=== PATIENT | female | born 1995 | race Caucasian/White ===

== ENCOUNTER 2023-03-21 16:14 | Inpatient (IN) | payer BC ==
[2023-03-21 19:53] VITALS: BMI 29.0
[2023-03-21] MEDS ORDERED: BENZONATATE 200 MG CAPSULE PO PRN (20:04)
[2023-03-21] MEDS ORDERED: COLLOIDAL OATMEAL 1 BAR EACH TP PRN (20:04)
[2023-03-21] MEDS ORDERED: MAGNESIUM HYDROX 2400MG/30ML ORAL SUSPENSION 30 ML CUP PO PRN (20:04)
[2023-03-21] MEDS ORDERED: MAG HYDROX/AL HYDROX/SIMETH 30 ML UNIT-DOSE CUP PO PRN (20:04)
[2023-03-21] MEDS ORDERED: LOPERAMIDE HCL 2 MG CAPSULE PO PRN (20:04)
[2023-03-21] MEDS ORDERED: POLYETHYLENE GLYCOL (HEALTHYLAX) 3350 17 GM PACKET PO PRN (20:04)
[2023-03-21] MEDS ORDERED: NALOXONE HCL (KLOXXADO) 8 MG SPRAY NS PRN (20:04)
[2023-03-21] MEDS ORDERED: NALOXONE HCL 0.4 MG/ML VIAL IM PRN (20:04)
[2023-03-21] MEDS ORDERED: guaiFENesin 600 MG TABLET.ER (FP) PO PRN (20:04)
[2023-03-21] MEDS ORDERED: ALBUTEROL SO4 HFA INHALER IH PRN (20:09)
[2023-03-21] MEDS: MELATONIN 5 MG TABLETS PO SCH (23:37)
[2023-03-21] MEDS: THIAMINE HCL 100 MG TABLET (FP) PO SCH (23:38)
[2023-03-22] MEDS ORDERED: TUBERCULIN PPD 5 TU/0.1ML VIAL ID ONE (01:20)
[2023-03-22 10:51] LABS: HEMATOCRIT 37.2 % (32.4-45.2); HEMOGLOBIN 12.4 GM/dL (10.7-15.3); MCH 30.1 pg (25.7-33.7); MCHC 33.3 g/dl (32.0-36.0); MEAN CELL VOLUME 90.5 fl (80-96); MEAN PLT VOLUME 8.8 fl (7.5-11.1); PLATELET COUNT 238 10^3/uL (134-434); RBC 4.11 M/mm3 (3.60-5.2); RDW 13.9 % (11.6-15.6); WHITE BLOOD COUNT 7.8 K/mm3 (4.0-10.0)
[2023-03-22] MEDS: PRENATAL VITAMINS W/ FOLIC ACID TABLET (FP) PO SCH (11:16)
[2023-03-22 11:49] LABS: CHLORIDE 114 mmol/L (98-107); SODIUM 146 mmol/L (136-145)
[2023-03-22 11:57] LABS: ANION GAP 5 mmol/L (4-13); BLOOD UREA NITROGEN 10.2 mg/dL (7-18); CALCIUM 8.7 mg/dL (8.5-10.1); CO2 27 mmol/L (21-32); GLUCOSE,RANDOM 89 mg/dL (74-106)
[2023-03-22 11:59] LABS: ALBUMIN 2.7 g/dl (3.4-5.0)
[2023-03-22 12:00] LABS: CREATININE 0.6 mg/dL (0.55-1.3)
[2023-03-22 12:01] LABS: SGOT/AST 12 U/L (15-37); SGPT/ALT 19 U/L (13-61)
[2023-03-22 12:02] LABS: BILIRUBIN,TOTAL 0.2 mg/dL (0.2-1); TOT PROT 6.8 g/dl (6.4-8.2)
[2023-03-22 12:03] LABS: ALK PHOS 54 U/L (45-117)
[2023-03-22 12:33] LABS: SYPHILIS W/ RPR CONF REACTIVE (NONREACTIVE)
[2023-03-22] MEDS: NICOTINE POLACRILEX 4 MG GUM BUC PRN ×2 (13:02→17:33)
[2023-03-22] MEDS: THIAMINE HCL 100 MG TABLET (FP) PO SCH (21:22)
[2023-03-22] MEDS: MELATONIN 5 MG TABLETS PO SCH (21:22)
[2023-03-23] MEDS: PRENATAL VITAMINS W/ FOLIC ACID TABLET (FP) PO SCH (10:10)
[2023-03-23 12:00] LABS: EPI CELLS >36 /uL (0-25.1); HYALINE CASTS 1 /uL (0-3.1); PH,URINE 5.5 (5.0-8.0); URINE APPEARANCE CLOUDY; URINE BACTERIA >9,000 /uL (0-1359); URINE BILIRUBIN NEGATIVE (NEGATIVE); URINE COLOR YELLOW; URINE GLUCOSE (UA) NEGATIVE (NEGATIVE); URINE KETONE NEGATIVE (NEGATIVE); URINE LEUK ESTERASE 2+ (NEGATIVE); URINE NITRITE POSITIVE (NEGATIVE); URINE PROTEIN NEGATIVE (NEGATIVE); URINE RBC 47 /uL (0-23.9); URINE UROBILINOGEN 0.2 mg/dL (0.2-1.0); URINE WBC 1837 /uL (0-25.8)
[2023-03-23] MEDS: NICOTINE POLACRILEX 4 MG GUM BUC PRN (20:28)
[2023-03-23] MEDS: MELATONIN 5 MG TABLETS PO SCH (21:10)
[2023-03-23] MEDS: THIAMINE HCL 100 MG TABLET (FP) PO SCH (21:10)
[2023-03-24] MEDS: NICOTINE POLACRILEX 4 MG GUM BUC PRN ×3 (09:50→21:20)
[2023-03-24] MEDS: PRENATAL VITAMINS W/ FOLIC ACID TABLET (FP) PO SCH (09:50)
[2023-03-24] MEDS ORDERED: PENICILLIN G BENZATHINE 2,400,000 UNIT/4 ML PFS IM ONE (12:02)
[2023-03-24] MEDS: IBUPROFEN 600 MG TABLET (FP) PO PRN ×2 (14:53→22:24)
[2023-03-24] MEDS: MELATONIN 5 MG TABLETS PO SCH (21:20)
[2023-03-24] MEDS: THIAMINE HCL 100 MG TABLET (FP) PO SCH (21:20)
[2023-03-24] MEDS ORDERED: SULFAMETHOXAZOLE/TRIMETHOPRIM 800MG/160MG D.S. TABLET PO SCH (22:00)
[2023-03-25] MEDS: PRENATAL VITAMINS W/ FOLIC ACID TABLET (FP) PO SCH (09:59)
[2023-03-25] MEDS: IBUPROFEN 600 MG TABLET (FP) PO PRN ×2 (09:59→21:24)
[2023-03-25] MEDS: NICOTINE POLACRILEX 4 MG GUM BUC PRN ×3 (10:00→21:27)
[2023-03-25 12:39] LABS: HIV INTERPRETATION NEGATIVE (NEGATIVE)
[2023-03-25] MEDS: THIAMINE HCL 100 MG TABLET (FP) PO SCH (21:24)
[2023-03-25] MEDS: MELATONIN 5 MG TABLETS PO SCH (21:24)
[2023-03-25] MEDS: SULFAMETHOXAZOLE/TRIMETHOPRIM 800MG/160MG D.S. TABLET PO SCH (21:24)
[2023-03-26] MEDS: NICOTINE POLACRILEX 4 MG GUM BUC PRN ×4 (07:58→21:46)
[2023-03-26] MEDS: PRENATAL VITAMINS W/ FOLIC ACID TABLET (FP) PO SCH (10:05)
[2023-03-26] MEDS: SULFAMETHOXAZOLE/TRIMETHOPRIM 800MG/160MG D.S. TABLET PO SCH ×2 (10:05→21:44)
[2023-03-26] MEDS ORDERED: ONDANSETRON *ODT* 4 MG TABLET SL PRN (10:14)
[2023-03-26] MEDS: IBUPROFEN 600 MG TABLET (FP) PO PRN (17:13)
[2023-03-26] MEDS: MELATONIN 5 MG TABLETS PO SCH (21:44)
[2023-03-26] MEDS: THIAMINE HCL 100 MG TABLET (FP) PO SCH (21:45)
[2023-03-27] MEDS: SULFAMETHOXAZOLE/TRIMETHOPRIM 800MG/160MG D.S. TABLET PO SCH ×2 (10:00→21:43)
[2023-03-27] MEDS: PRENATAL VITAMINS W/ FOLIC ACID TABLET (FP) PO SCH (10:00)
[2023-03-27] MEDS: NICOTINE POLACRILEX 4 MG GUM BUC PRN ×5 (10:01→19:18)
[2023-03-27] MEDS: THIAMINE HCL 100 MG TABLET (FP) PO SCH (21:43)
[2023-03-27] MEDS: MELATONIN 5 MG TABLETS PO SCH (21:43)
[2023-03-27] MEDS: ACETAMINOPHEN 325 MG TABLET (FP) PO PRN (21:44)
[2023-03-28] MEDS: PRENATAL VITAMINS W/ FOLIC ACID TABLET (FP) PO SCH (09:59)
[2023-03-28] MEDS: SULFAMETHOXAZOLE/TRIMETHOPRIM 800MG/160MG D.S. TABLET PO SCH ×2 (09:59→21:28)
[2023-03-28] MEDS: NICOTINE POLACRILEX 4 MG GUM BUC PRN ×5 (10:00→21:27)
[2023-03-28] MEDS: ACETAMINOPHEN 325 MG TABLET (FP) PO PRN (11:28)
[2023-03-28] MEDS: THIAMINE HCL 100 MG TABLET (FP) PO SCH (21:28)
[2023-03-28] MEDS: MELATONIN 5 MG TABLETS PO SCH (21:28)
[2023-03-29] MEDS: NICOTINE POLACRILEX 4 MG GUM BUC PRN ×5 (09:48→21:41)
[2023-03-29] MEDS: PRENATAL VITAMINS W/ FOLIC ACID TABLET (FP) PO SCH (09:48)
[2023-03-29] MEDS: THIAMINE HCL 100 MG TABLET (FP) PO SCH (21:38)
[2023-03-29] MEDS: MELATONIN 5 MG TABLETS PO SCH (21:38)
[2023-03-29] MEDS: IBUPROFEN 600 MG TABLET (FP) PO PRN (21:39)
[2023-03-29] MEDS: ACETAMINOPHEN 325 MG TABLET (FP) PO PRN (23:26)
[2023-03-30] MEDS: PRENATAL VITAMINS W/ FOLIC ACID TABLET (FP) PO SCH (09:39)
[2023-03-30] MEDS: NICOTINE POLACRILEX 4 MG GUM BUC PRN ×5 (09:40→22:04)
[2023-03-30] MEDS: IBUPROFEN 600 MG TABLET (FP) PO PRN ×3 (10:57→21:25)
[2023-03-30] MEDS ORDERED: METHYL SALICYLATE/MENTHOL OINT 30 GM TUBE TP PRN (13:45)
[2023-03-30] MEDS: METHYL SALICYLATE/MENTHOL OINT 30 GM TUBE TP PRN ×2 (14:37→21:26)
[2023-03-30] MEDS: METHOCARBAMOL 500 MG TABLET PO PRN ×2 (14:37→21:25)
[2023-03-30] MEDS: THIAMINE HCL 100 MG TABLET (FP) PO SCH (21:23)
[2023-03-30] MEDS: MELATONIN 5 MG TABLETS PO SCH (21:23)
[2023-03-31] MEDS: NICOTINE POLACRILEX 4 MG GUM BUC PRN ×7 (08:05→22:20)
[2023-03-31] MEDS: METHYL SALICYLATE/MENTHOL OINT 30 GM TUBE TP PRN ×2 (09:55→21:32)
[2023-03-31] MEDS: PRENATAL VITAMINS W/ FOLIC ACID TABLET (FP) PO SCH (09:55)
[2023-03-31] MEDS: METHOCARBAMOL 500 MG TABLET PO PRN ×2 (09:56→21:33)
[2023-03-31] MEDS: IBUPROFEN 400 MG TABLET (FP) PO PRN (09:56)
[2023-03-31] MEDS ORDERED: PENICILLIN G BENZATHINE 2,400,000 UNIT/4 ML PFS IM ONE (10:00)
[2023-03-31] MEDS: MELATONIN 5 MG TABLETS PO SCH (21:29)
[2023-03-31] MEDS: IBUPROFEN 600 MG TABLET (FP) PO PRN (21:29)
[2023-03-31] MEDS: THIAMINE HCL 100 MG TABLET (FP) PO SCH (21:34)
[2023-04-01] MEDS: NICOTINE POLACRILEX 4 MG GUM BUC PRN ×5 (06:53→21:18)
[2023-04-01] MEDS: PRENATAL VITAMINS W/ FOLIC ACID TABLET (FP) PO SCH (09:43)
[2023-04-01] MEDS: IBUPROFEN 600 MG TABLET (FP) PO PRN ×3 (09:43→23:00)
[2023-04-01] MEDS: METHOCARBAMOL 500 MG TABLET PO PRN ×2 (09:43→21:16)
[2023-04-01] MEDS: MELATONIN 5 MG TABLETS PO SCH (21:16)
[2023-04-01] MEDS: METHYL SALICYLATE/MENTHOL OINT 30 GM TUBE TP PRN (21:17)
[2023-04-01] MEDS: THIAMINE HCL 100 MG TABLET (FP) PO SCH (21:18)
[2023-04-02] MEDS: hydrOXYzine PAMOATE 25 MG CAPSULE (FP) PO PRN (02:15)
[2023-04-02] MEDS: ALBUTEROL SO4 HFA INHALER IH PRN ×2 (03:03→15:23)
[2023-04-02] MEDS: NICOTINE POLACRILEX 4 MG GUM BUC PRN ×7 (07:51→23:11)
[2023-04-02] MEDS: PRENATAL VITAMINS W/ FOLIC ACID TABLET (FP) PO SCH (09:34)
[2023-04-02] MEDS: METHOCARBAMOL 500 MG TABLET PO PRN ×2 (09:36→21:36)
[2023-04-02] MEDS: IBUPROFEN 600 MG TABLET (FP) PO PRN ×3 (09:36→21:37)
[2023-04-02] MEDS: MELATONIN 5 MG TABLETS PO SCH (21:36)
[2023-04-02] MEDS: THIAMINE HCL 100 MG TABLET (FP) PO SCH (21:36)
[2023-04-03] MEDS: NICOTINE POLACRILEX 4 MG GUM BUC PRN ×5 (06:01→21:42)
[2023-04-03] MEDS: BENZOCAINE/MENTHOL (CHLORASEPTIC ) LOZENGE MM PRN ×3 (06:24→21:27)
[2023-04-03] MEDS: PRENATAL VITAMINS W/ FOLIC ACID TABLET (FP) PO SCH (09:50)
[2023-04-03] MEDS: IBUPROFEN 400 MG TABLET (FP) PO PRN ×2 (09:51→15:41)
[2023-04-03] MEDS: METHOCARBAMOL 500 MG TABLET PO PRN ×2 (15:41→21:24)
[2023-04-03] MEDS: MELATONIN 5 MG TABLETS PO SCH (21:23)
[2023-04-03] MEDS: THIAMINE HCL 100 MG TABLET (FP) PO SCH (21:24)
[2023-04-03] MEDS: IBUPROFEN 600 MG TABLET (FP) PO PRN (21:25)
[2023-04-04] MEDS: BENZOCAINE/MENTHOL (CHLORASEPTIC ) LOZENGE MM PRN ×3 (03:58→18:37)
[2023-04-04] MEDS: NICOTINE POLACRILEX 4 MG GUM BUC PRN ×5 (05:42→21:22)
[2023-04-04] MEDS: METHOCARBAMOL 500 MG TABLET PO PRN ×2 (06:23→21:20)
[2023-04-04] MEDS: PRENATAL VITAMINS W/ FOLIC ACID TABLET (FP) PO SCH (09:38)
[2023-04-04] MEDS: IBUPROFEN 400 MG TABLET (FP) PO PRN (09:39)
[2023-04-04] MEDS: IBUPROFEN 600 MG TABLET (FP) PO PRN (21:20)
[2023-04-04] MEDS: MELATONIN 5 MG TABLETS PO SCH (21:20)
[2023-04-04] MEDS: THIAMINE HCL 100 MG TABLET (FP) PO SCH (21:20)
[2023-04-04] MEDS: hydrOXYzine PAMOATE 25 MG CAPSULE (FP) PO PRN (22:24)
[2023-04-05] MEDS: ALBUTEROL SO4 HFA INHALER IH PRN (00:21)
[2023-04-05] MEDS: BENZOCAINE/MENTHOL (CHLORASEPTIC ) LOZENGE MM PRN ×3 (06:48→18:07)
[2023-04-05] MEDS: METHOCARBAMOL 500 MG TABLET PO PRN ×2 (06:49→21:21)
[2023-04-05] MEDS: hydrOXYzine PAMOATE 25 MG CAPSULE (FP) PO PRN ×2 (06:49→21:22)
[2023-04-05] MEDS: PRENATAL VITAMINS W/ FOLIC ACID TABLET (FP) PO SCH (09:32)
[2023-04-05] MEDS: NICOTINE POLACRILEX 4 MG GUM BUC PRN ×3 (09:34→19:53)
[2023-04-05] MEDS: IBUPROFEN 600 MG TABLET (FP) PO PRN ×2 (14:44→21:21)
[2023-04-05] MEDS: THIAMINE HCL 100 MG TABLET (FP) PO SCH (21:21)
[2023-04-05] MEDS: MELATONIN 5 MG TABLETS PO SCH (21:21)
[2023-04-06] MEDS: BENZOCAINE/MENTHOL (CHLORASEPTIC ) LOZENGE MM PRN ×4 (02:46→23:20)
[2023-04-06] MEDS: hydrOXYzine PAMOATE 25 MG CAPSULE (FP) PO PRN ×2 (06:23→21:21)
[2023-04-06] MEDS: NICOTINE POLACRILEX 4 MG GUM BUC PRN ×5 (06:24→21:24)
[2023-04-06] MEDS: PRENATAL VITAMINS W/ FOLIC ACID TABLET (FP) PO SCH (09:40)
[2023-04-06] MEDS: IBUPROFEN 600 MG TABLET (FP) PO PRN ×2 (15:18→21:21)
[2023-04-06] MEDS: THIAMINE HCL 100 MG TABLET (FP) PO SCH (21:21)
[2023-04-06] MEDS: METHOCARBAMOL 500 MG TABLET PO PRN (21:21)
[2023-04-06] MEDS: METHYL SALICYLATE/MENTHOL OINT 30 GM TUBE TP PRN (21:21)
[2023-04-06] MEDS: MELATONIN 5 MG TABLETS PO SCH (21:21)
[2023-04-06] MEDS: ALBUTEROL SO4 HFA INHALER IH PRN (23:20)
[2023-04-07] MEDS: METHOCARBAMOL 500 MG TABLET PO PRN ×2 (03:56→11:37)
[2023-04-07] MEDS: BENZOCAINE/MENTHOL (CHLORASEPTIC ) LOZENGE MM PRN ×4 (03:57→23:20)
[2023-04-07] MEDS: NICOTINE POLACRILEX 4 MG GUM BUC PRN ×5 (03:58→19:43)
[2023-04-07 06:37] VITALS: RESP 20
[2023-04-07] MEDS: IBUPROFEN 600 MG TABLET (FP) PO PRN ×3 (09:31→21:20)
[2023-04-07] MEDS: PRENATAL VITAMINS W/ FOLIC ACID TABLET (FP) PO SCH (09:31)
[2023-04-07] MEDS: hydrOXYzine PAMOATE 25 MG CAPSULE (FP) PO PRN ×2 (09:31→21:19)
[2023-04-07] MEDS ORDERED: PENICILLIN G BENZATHINE 2,400,000 UNIT/4 ML PFS IM ONE ×2 (10:00→13:00)
[2023-04-07] MEDS: ALBUTEROL SO4 HFA INHALER IH PRN (13:30)
[2023-04-07] MEDS ORDERED: hydrOXYzine PAMOATE 25 MG CAPSULE (FP) PO ONE (14:32)
[2023-04-07] MEDS: THIAMINE HCL 100 MG TABLET (FP) PO SCH (21:19)
[2023-04-07] MEDS: MELATONIN 5 MG TABLETS PO SCH (21:19)
[2023-04-07] MEDS: ACETAMINOPHEN 325 MG TABLET (FP) PO PRN (23:56)
[2023-04-08] MEDS: ALBUTEROL SO4 HFA INHALER IH PRN ×2 (01:37→09:25)
[2023-04-08] MEDS: NICOTINE POLACRILEX 4 MG GUM BUC PRN ×3 (02:02→11:10)
[2023-04-08] MEDS: METHOCARBAMOL 500 MG TABLET PO PRN ×2 (02:05→09:27)
[2023-04-08 03:33] VITALS: BP 134/80; PULSE 83; TEMP 98
[2023-04-08] MEDS: ARTIFICIAL TEARS OPHTHALMIC DROPS OU PRN ×2 (04:00→09:28)
[2023-04-08] MEDS: hydrOXYzine PAMOATE 25 MG CAPSULE (FP) PO PRN (06:48)
[2023-04-08] MEDS: IBUPROFEN 600 MG TABLET (FP) PO PRN (07:21)
[2023-04-08] MEDS: PRENATAL VITAMINS W/ FOLIC ACID TABLET (FP) PO SCH (09:25)
[2023-04-08] MEDS: ACETAMINOPHEN 325 MG TABLET (FP) PO PRN (09:25)
== END 2023-04-08 11:30 | disposition home or self-care (01) | DRG 772 ==
LOC: YASAS 16:14 → Y5N 03-22 00:56
PROVIDERS: ADMIT Allergy & Immunology; ATTEND Psychiatry & Neurology Pain Medicine
PROC: HZ42ZZZ Group Counseling for Substance Abuse Treatment, Cognitive-Behavioral (ICD-10-PCS; principal; 2023-03-22)
DX: F14.20 Cocaine dependence, uncomplicated (principal); F12.20 Cannabis dependence, uncomplicated; F17.210 Nicotine dependence, cigarettes, uncomplicated; F25.0 Schizoaffective disorder, bipolar type; F19.24 Other psychoactive substance dependence with psychoactive substance-induced mood disorder; J45.909 Unspecified asthma, uncomplicated; N39.0 Urinary tract infection, site not specified; B96.20 Unspecified Escherichia coli [E. coli] as the cause of diseases classified elsewhere; M25.512 Pain in left shoulder; A53.9 Syphilis, unspecified; R76.8 Other specified abnormal immunological findings in serum; Z62.810 Personal history of physical and sexual abuse in childhood; Z88.1 Allergy status to other antibiotic agents
CPT/HCPCS: 36415; 80053; 80307; 81003; 81025; 85027; 86593; 86780; 86803; 87086; 87186; 87389; 87635; Q0162